=== PATIENT | female | born 2000 ===

== ENCOUNTER 2023-11-08 15:09 | Outpatient (CLI) | payer OTHER | END 2023-11-08 15:10 | disposition home or self-care (01) | LOC: PRENATAL 15:09 | PROVIDERS: ATTEND Obstetrics & Gynecology Maternal & Fetal Medicine | DX: O26.849 Uterine size-date discrepancy, unspecified trimester (principal); O36.8199 Decreased fetal movements, unspecified trimester, other fetus; Z3A.32 32 weeks gestation of pregnancy ==